=== PATIENT | male | born 1945 | race Caucasian/White ===

== ENCOUNTER 2016-07-16 15:14 | Emergency (ER) | payer MEDICARE, OTHER ==
[2016-07-16] MEDS ORDERED: HYDROcodone/Acetaminophen 5/325 mg Tablet ONE (16:35)
--- NOTE | 2016-07-16 18:50 | CT ---
CT BRAIN WITHOUT CONTRAST 07/16/[address] was done following trauma. No intracranial bleeding or extra-axial hematoma was see n. There is no sign of mass, stroke or edema. The ventricles are normal in size. The calvarium appea rs intact. There is no air fluid level in the sphenoid sinus. IMPRESSION: No acute intracranial findings. POS: HOME
--- NOTE | 2016-07-16 19:47 | CT ---
CT OF THE CERVICAL SPINE 07/16/[address] was done following trauma. Axial slices were acquired, then coronal and sagittal re constructions were done. No fracture, dislocation, or soft tissue swelling was seen. The C1 to dens distance is normal. Some mild degenerative changes are present. Findings by level follow: C1-C2: No acute findings. C2-C3: Mild left foraminal narrowing due to osteophytes. C3-C4: Minimal anterolisthesis of C3 on C4 which is probably due to facet arthritis which is signifi cant on the right side. There is moderate to severe right foraminal narrowing. C4-C5: There may be a central disc osteophyte complex but it only barely effaces the thecal sac. The re is no significant stenosis in the foramina. C5-C6: No acute findings or significant stenosis. C6-C7: No significant stenosis appreciated. C7-T1: No acute findings. There is some streak artifact over the neck. Some of the mid to lower parts of the thyroid gland may be a little inhomogeneous, particularly on the right. I cannot exclude thyroid pathology. An electi ve ultrasound of the thyroid might be prudent. IMPRESSION: 1. No acute traumatic changes. 2. Mild degenerative changes of the C-spine. 3. Cannot exclude thyroid pathology. Followup elective ultrasound recommended. Findings discussed with Dr. Grace and need for followup at 1610 on 07/16/16. POS: HOME
--- NOTE | 2016-07-16 19:49 | RAD ---
RIGHT SHOULDER THREE VIEWS 07/16/16 No fracture, dislocation, or acute bony change was seen. Some bony densities along the inferior lip of the glenoid have the appearance of old trauma. Degenerative changes are seen at the AC joint. Bon y spurring at the clavicular attachment of the coracoclavicular ligament suggests old trauma here. T here may be a faint calcific area in one of the rotator cuff tendons as it approaches the greater tu bercle of the humerus. IMPRESSION: Evidence of old trauma and degenerative change but no acute traumatic finding. POS: HOME
== END 2016-07-16 16:42 | disposition home or self-care (01) ==
LOC: BURERS 15:14
DX: S01.01XA Laceration without foreign body of scalp, initial encounter (principal); S40.011A Contusion of right shoulder, initial encounter; S80.01XA Contusion of right knee, initial encounter; S60.512A Abrasion of left hand, initial encounter; S60.511A Abrasion of right hand, initial encounter; I10 Essential (primary) hypertension; Z79.899 Other long term (current) drug therapy; W10.9XXA Fall (on) (from) unspecified stairs and steps, initial encounter
CPT/HCPCS: 70450; 72125